=== PATIENT | male | born 1955 | race Two or more races ===

== ENCOUNTER 2016-08-16 20:16 | Emergency (ER) | payer MEDICAID ==
[~2016-08-16] VITALS: Ht 160 cm; Wt 54.0 kg
[~2016-08-16 20:16] MED LIST: IOHEXOL-300 100 ML BOTTLE ONE; SODIUM CHLORIDE 0.9% 10ML VIAL ONE
[2016-08-16] MEDS ORDERED: MORPHINE SULFATE 4 MG/ML CPJ (NOT FOR IM USE) IV ONE (20:45)
[2016-08-16 21:33] LABS: BASOPHILS % 0.8 % (0.0-2.0); EOSINOPHILS % 1.5 % (0.0-5.0); HEMOGLOBIN. 14.5 g/dL (14.0-18.0); LYMPHOCYTES % 10.3 % (20.0-50.0); MEAN CORPUSCULAR HGB CONC 33.6 g/dL (31.0-37.0); MEAN PLATELET VOLUME 7.7 fl (7.4-10.4); MONOCYTES % 6.9 % (2.0-8.0); NEUTROPHILS % 80.5 % (40.0-76.0); PLATELET 281 x1000/uL (130-400); RED BLOOD CELL COUNT 4.67 mill/uL (4.7-6.1); RED CELL DISTRIBUTION WIDTH 14.3 % (11.6-14.6); WHITE BLOOD COUNT 17.4 x1000/uL (4.5-11.0)
[2016-08-16 21:34] LABS: CHLORIDE 109 mEq/L (98-107); INDEX HEMOLYSI 1 (1-3); INDEX ICTERIC 1 (1-4); INDEX LIPEMIC 1 (1-3)
[2016-08-16 21:37] LABS: PARTIAL THROMBOPLASTIN TIME 27.8 sec (24.0-34.0); PROTHROMBIN TIME 10.3 sec
[2016-08-16 21:42] LABS: ALANINE AMINOTRANSFERASE 28 IU/L (13-61); ALBUMIN 3.2 g/dL (3.4-5.0); ANION GAP 13; CALCIUM 8.8 mg/dL (8.5-10.1); CARBON DIOXIDE 24 mEq/L (21-32); LIPASE 216 IU/L (73-393); UREA NITROGEN BLOOD 18 mg/dL (7-21); eGFR 56 mL/min (>60)
[2016-08-16 21:50] LABS: CLARITY URINE CLEAR (CLEAR); COLOR URINE YELLOW (YELLOW); GLUCOSE URINE NEGATIVE (NEGATIVE); KETONES URINE NEGATIVE (NEGATIVE); LEUKOCYTE ESTERASE URINE NEGATIVE (NEGATIVE); NITRITE URINE NEGATIVE (NEGATIVE); OCCULT BLOOD URINE 1+ (NEGATIVE); PH URINE 5.5 (4.5-8.0); PROTEIN URINE NEGATIVE (NEGATIVE); UROBILINOGEN URINE 0.2 E.U./dL (0.2-1.0)
[2016-08-16 22:10] LABS: BACTERIA URINE TRACE; SQUAMOUS EPITHELIAL CELL URINE RARE /lpf (RARE/1+); WBC URINE 0-2 /hpf (0-2)
[2016-08-17] MEDS ORDERED: MORPHINE SULFATE 4 MG/ML CPJ (NOT FOR IM USE) IV ONE (00:45)
[2016-08-17 03:00] VITALS: BP 132/72
== END 2016-08-17 04:15 | disposition home or self-care (01) ==
LOC: ER 20:17
DX: N20.0 Calculus of kidney (principal); E78.00 Pure hypercholesterolemia, unspecified; I10 Essential (primary) hypertension; F17.210 Nicotine dependence, cigarettes, uncomplicated
CPT/HCPCS: 36415; 74177; 80053; 81001; 83605; 83690; 85025; 85610; 85730; 96374; 96376; 99285; A4216; J2270; Q9967; Z7610

== ENCOUNTER 2020-12-29 16:51 | Emergency (ER) | payer MEDICAID ==
[~2020-12-29] VITALS: Ht 170.2 cm; Wt 79.0 kg
[2020-12-29] MEDS ORDERED: IBUPROFEN 400MG TABLET PO ONE (19:00)
[2020-12-29 19:12] VITALS: BP 122/70
[2020-12-29] MEDS ORDERED: IBUP-2028 MT (20:26)
== END 2020-12-29 21:34 | disposition home or self-care (01) ==
LOC: ER 16:51
DX: M17.0 Bilateral primary osteoarthritis of knee (principal); E78.00 Pure hypercholesterolemia, unspecified; I10 Essential (primary) hypertension
CPT/HCPCS: 93970; 99284

== ENCOUNTER 2022-01-01 10:41 | Emergency (ER) | payer MEDICAID, OTHER ==
[~2022-01-01] VITALS: Ht 160 cm; Wt 66.0 kg
[~2022-01-01 10:41] MED LIST changes: +IBUP-2028 MT; -IOHEXOL-300 100 ML BOTTLE ONE; -SODIUM CHLORIDE 0.9% 10ML VIAL ONE
[2022-01-01 10:49] VITALS: BP 112/67
[2022-01-01] MEDS ORDERED: TRIA1TAB94 MT (14:19)
== END 2022-01-01 14:38 | disposition home or self-care (01) ==
LOC: ER 10:41
DX: R60.0 Localized edema (principal); M25.562 Pain in left knee; M25.561 Pain in right knee; I10 Essential (primary) hypertension; E11.9 Type 2 diabetes mellitus without complications
CPT/HCPCS: 99283

== ENCOUNTER 2023-08-04 09:42 | Emergency (ER) | payer OTHER ==
[~2023-08-04] VITALS: Ht 162.6 cm; Wt 74.0 kg
[~2023-08-04 09:42] MED LIST changes: +TRIA1TAB94 MT
[2023-08-04 09:49] VITALS: O2SAT 100
[2023-08-04 10:08] LABS: BASOPHILS % 0.9 % (0.0-2.0); EOSINOPHILS % 1.9 % (0.0-5.0); HEMATOCRIT. 29.1 % (42.0-52.0); HEMOGLOBIN. 9.2 g/dL (14.0-18.0); LYMPHOCYTES % 21.2 % (20.0-50.0); MEAN CORPUSCULAR HEMOGLOBIN 24.9 pg (28.0-32.0); MEAN CORPUSCULAR HGB CONC 31.6 g/dL (31.0-37.0); MEAN CORPUSCULAR VOLUME 78.8 fL (80.0-94.0); MEAN PLATELET VOLUME 7.1 fl (7.4-10.4); MONOCYTES % 9.1 % (2.0-8.0); NEUTROPHILS % 66.9 % (40.0-76.0); PLATELET 673 x1000/uL (130-400); RED BLOOD CELL COUNT 3.69 mill/uL (4.7-6.1); RED CELL DISTRIBUTION WIDTH 22.6 % (11.6-14.6); WHITE BLOOD COUNT 12.9 x1000/uL (4.5-11.0)
[2023-08-04 10:18] LABS: PROTHROMBIN TIME 10.9 sec (9.6-11.0)
[2023-08-04 10:58] LABS: ADD RBC MORPHOLOGY YES; DIFFERENTIAL COMMENT 1
[2023-08-04 11:23] LABS: ALANINE AMINOTRANSFERASE 8 IU/L (10-49); ALBUMIN 4.2 g/dL (3.2-4.8); ASPARTATE AMINOTRANSFERASE 19 IU/L (<34); BILIRUBIN TOTAL 0.3 mg/dL (0.1-1.0); CALCIUM 9.2 mg/dL (8.7-10.4); CARBON DIOXIDE 18 mEq/L (21-32); CHLORIDE 105 mEq/L (98-107); CREATININE 1.4 mg/dL (0.6-1.3); GLUCOSE 189 mg/dL (70-105); POTASSIUM 4.4 mEq/L (3.5-5.1); PROTEIN TOTAL 6.8 g/dL (6.0-8.3); SODIUM 134 mEq/L (136-145); UREA NITROGEN BLOOD 17 mg/dL (9-23)
[2023-08-04 11:51] LABS: ANISOCYTOSIS 2+; MICROCYTOSIS 1+; PLATELET ESTIMATE MARKEDLY INCREASED
[2023-08-04 13:25] LABS: TROPONIN I HIGH SENSITIVITY < 4 ng/L (3.0-53)
[2023-08-04 13:46] VITALS: BP 121/71; PULSE 67; RESP 19; TEMP 98.3
[2023-08-04] MEDS: SODIUM CHLORIDE 0.9% 1,000 ML IV ONE (13:56)
[2023-08-04] MEDS: ASPIRIN 325MG EC TABLET PO ONE (14:18)
== END 2023-08-04 14:50 | disposition short-term general hospital (02) ==
LOC: ER 09:42
DX: R27.0 Ataxia, unspecified (principal); I10 Essential (primary) hypertension; E78.00 Pure hypercholesterolemia, unspecified; E11.9 Type 2 diabetes mellitus without complications
CPT/HCPCS: 99285; 96360; 70450; 71045; 80053; 85025; 85610; 84484; 36415; 93005; J7030

== ENCOUNTER 2024-04-07 19:47 | Inpatient (IN) | payer BC, OTHER ==
[~2024-04-07] VITALS: Ht 167.6 cm; Wt 67.7 kg
[2024-04-07] MEDS: SODIUM CHLORIDE 0.9% 1,000 ML IV ONE (22:13)
[2024-04-07 23:08] LABS: CHLORIDE 110 mEq/L (98-107); POTASSIUM 4.5 mEq/L (3.5-5.1); SODIUM 147 mEq/L (136-145)
[2024-04-07 23:09] LABS: CALCIUM 10.3 mg/dL (8.7-10.4); CARBON DIOXIDE 22 mEq/L (21-32)
[2024-04-07 23:12] LABS: PROTHROMBIN TIME 11.5 sec (9.6-11.0)
[2024-04-07 23:19] LABS: ALANINE AMINOTRANSFERASE 20 IU/L (10-49); ALBUMIN 3.3 g/dL (3.2-4.8); ASPARTATE AMINOTRANSFERASE 10 IU/L (<34); BILIRUBIN TOTAL 0.3 mg/dL (0.1-1.0); CREATININE 2.1 mg/dL (0.6-1.3); GLUCOSE 168 mg/dL (70-105); PROTEIN TOTAL 5.2 g/dL (6.0-8.3); UREA NITROGEN BLOOD 44 mg/dL (9-23)
[2024-04-07 23:20] LABS: BILIRUBIN DIRECT < 0.1 mg/dL (<=3.0)
[2024-04-08] VITALS (65 sets, daily range): BP systolic 105–155; BP diastolic 54–86; PULSE 52–90; RESP 7–23; TEMP 36.6696–37.28076; O2SAT 94–100
[2024-04-08] MEDS: MORPHINE SULFATE 4 MG/ML INJ (FOR IV/IM USE) IV ONE (00:02)
[2024-04-08] MEDS: PANTOPRAZOLE SODIUM 40 MG/VIAL IV ONE (00:03)
[2024-04-08] MEDS: ONDANSETRON HCL 4MG/2ML INJ IV ONE (00:03)
[2024-04-08 00:06] LABS: BASOPHILS % 0.1 % (0.0-2.0); EOSINOPHILS % 0.4 % (0.0-5.0); LYMPHOCYTES % 12.7 % (20.0-50.0); MEAN CORPUSCULAR HEMOGLOBIN 23.6 pg (28.0-32.0); MEAN CORPUSCULAR HGB CONC 29.4 g/dL (31.0-37.0); MEAN CORPUSCULAR VOLUME 80.2 fL (80.0-94.0); MEAN PLATELET VOLUME 7.4 fl (7.4-10.4); MONOCYTES % 9.5 % (2.0-8.0); NEUTROPHILS % 77.3 % (40.0-76.0); PLATELET 315 x1000/uL (130-400); RED BLOOD CELL COUNT 1.29 mill/uL (4.7-6.1); RED CELL DISTRIBUTION WIDTH 19.9 % (11.6-14.6)
[2024-04-08 00:25] LABS: DIFFERENTIAL COMMENT 1; HEMATOCRIT. 10.3 % (42.0-52.0)
[2024-04-08] MEDS: MORPHINE SULFATE 2 MG/ML INJ (NOT FOR IM USE) IV ONE (02:19)
[2024-04-08 02:26] LABS: BASOPHILS % 0.4 % (0.0-2.0); EOSINOPHILS % 0.7 % (0.0-5.0); LYMPHOCYTES % 12.5 % (20.0-50.0); MEAN CORPUSCULAR HEMOGLOBIN 27.3 pg (28.0-32.0); MEAN CORPUSCULAR HGB CONC 32.8 g/dL (31.0-37.0); MEAN CORPUSCULAR VOLUME 83.4 fL (80.0-94.0); MEAN PLATELET VOLUME 7.6 fl (7.4-10.4); MONOCYTES % 9.7 % (2.0-8.0); NEUTROPHILS % 76.7 % (40.0-76.0); PLATELET 222 x1000/uL (130-400); RED BLOOD CELL COUNT 1.89 mill/uL (4.7-6.1); RED CELL DISTRIBUTION WIDTH 17.3 % (11.6-14.6)
[2024-04-08 02:32] LABS: HEMOGLOBIN. 5.2 g/dL (14.0-18.0)
[2024-04-08 02:33] LABS: DIFFERENTIAL COMMENT 1; HEMATOCRIT. 15.8 % (42.0-52.0)
[2024-04-08] MEDS ORDERED: ACETAMINOPHEN 325MG TABLET PO PRN (09:15)
[2024-04-08] MEDS ORDERED: CLONIDINE 0.1MG TABLET PO PRN (09:15)
[2024-04-08] MEDS ORDERED: IPRATROPIUM/ALBUTEROL 0.5-3(2.5)MG/3ML NEB HHN PRN (09:15)
[2024-04-08] MEDS ORDERED: ONDANSETRON HCL 4MG/2ML INJ IV PRN (09:15)
[2024-04-08] MEDS ORDERED: DEXTROSE 50% WATER 50ML SYRINGE IV PRN (09:15)
[2024-04-08] MEDS: DEXTROSE 5% WATER 1,000 ML IV SCH (09:55)
[2024-04-08] MEDS: PANTOPRAZOLE 80 MG in SODIUM CHLORIDE 0.9% 100 ML IV SCH (11:19)
[2024-04-08] MEDS: INSULIN LISPRO 100 UNITS/ML SUBCUT SCH (11:34)
[2024-04-08] MEDS: BLOOD SUGAR DIAGNOSTIC STRIP TEST SCH (11:34)
[2024-04-08 12:37] LABS: BASOPHILS % 0.4 % (0.0-2.0); EOSINOPHILS % 1.6 % (0.0-5.0); HEMATOCRIT. 22.4 % (42.0-52.0); HEMOGLOBIN. 7.3 g/dL (14.0-18.0); LYMPHOCYTES % 15.2 % (20.0-50.0); MEAN CORPUSCULAR HEMOGLOBIN 27.2 pg (28.0-32.0); MEAN CORPUSCULAR HGB CONC 32.4 g/dL (31.0-37.0); MEAN PLATELET VOLUME 7.5 fl (7.4-10.4); MONOCYTES % 8.3 % (2.0-8.0); NEUTROPHILS % 74.5 % (40.0-76.0); PLATELET 206 x1000/uL (130-400); RED BLOOD CELL COUNT 2.67 mill/uL (4.7-6.1); RED CELL DISTRIBUTION WIDTH 16.5 % (11.6-14.6); WHITE BLOOD COUNT 11.5 x1000/uL (4.5-11.0)
[2024-04-08 12:41] LABS: DIFFERENTIAL COMMENT 1
[2024-04-08 12:43] LABS: ADD RBC MORPHOLOGY YES; PROTHROMBIN TIME 10.9 sec (9.6-11.0)
[2024-04-08 12:47] LABS: CHLORIDE 115 mEq/L (98-107); POTASSIUM 4.2 mEq/L (3.5-5.1); SODIUM 145 mEq/L (136-145)
[2024-04-08 12:48] LABS: CALCIUM 9.4 mg/dL (8.7-10.4); CARBON DIOXIDE 22 mEq/L (21-32)
[2024-04-08 12:53] LABS: CREATININE 1.7 mg/dL (0.6-1.3); GLUCOSE 111 mg/dL (70-105); UREA NITROGEN BLOOD 36 mg/dL (9-23)
[2024-04-08 12:55] LABS: CREATINE KINASE 35 IU/L (46-171)
[2024-04-08 12:57] LABS: T4 FREE 1.34 ng/dL (0.89-1.76); THYROID STIMULATING HORMONE 3.72 uIU/mL (0.55-4.78)
[2024-04-08 13:05] LABS: ETHANOL BLOOD < 10 mg/dL (<10)
[2024-04-08 14:32] LABS: CLARITY URINE CLEAR (CLEAR); COLOR URINE YELLOW (YELLOW); GLUCOSE URINE NEGATIVE (NEGATIVE); KETONES URINE NEGATIVE (NEGATIVE); LEUKOCYTE ESTERASE URINE NEGATIVE (NEGATIVE); NITRITE URINE NEGATIVE (NEGATIVE); OCCULT BLOOD URINE NEGATIVE (NEGATIVE); PROTEIN URINE NEGATIVE (NEGATIVE); SPECIFIC GRAVITY URINE 1.012 (1.005-1.030); UROBILINOGEN URINE 0.2 E.U./dL (0.2-1.0)
[2024-04-08 14:58] LABS: *AMPHETAMINES SCREEN URINE NEGATIVE (NEGATIVE)
[2024-04-08 14:59] LABS: *BARBITURATES SCREEN URINE NEGATIVE (NEGATIVE); *BENZODIAZEPINES SCREEN URINE NEGATIVE (NEGATIVE); *COCAINE SCREEN URINE NEGATIVE (NEGATIVE); CANNABINOID URINE SCREEN NEGATIVE (NEGATIVE); ECSTASY MDMA SCREEN URINE NEGATIVE (NEGATIVE); METHADONE URINE SCREEN NEGATIVE (NEGATIVE); OPIATES URINE SCREEN PRESUMPTIVE POSITIVE (NEGATIVE); PHENCYCLIDINE URINE SCREEN NEGATIVE (NEGATIVE)
[2024-04-08 15:04] LABS: MICROCYTOSIS 2+; PLATELET ESTIMATE NORMAL
[2024-04-08] MEDS ORDERED: IOHEXOL-350 100 ML BOTTLE ONE (15:13)
[2024-04-08] MEDS: SUCRALFATE 1G TABLET PO SCH (16:39)
[2024-04-08] MEDS: ACETAMINOPHEN 325MG TABLET PO PRN (18:36)
[2024-04-08 18:45] LABS: CREATINE KINASE MB FRACTION 2.2 ng/mL (0.5-3.6); TROPONIN I HIGH SENSITIVITY 5 ng/L (3.0-53)
[2024-04-08 18:46] LABS: CREATINE KINASE 36 IU/L (46-171)
[2024-04-08 22:56] LABS: HEMATOCRIT 22.5 % (42.0-52.0); HEMOGLOBIN 7.5 g/dL (14.0-18.0); MEAN CORPUSCULAR HEMOGLOBIN 27.6 pg (28.0-32.0); MEAN CORPUSCULAR HGB CONC 33.3 g/dL (31.0-37.0); PLATELET 212 x1000/uL (130-400); RED BLOOD CELL COUNT 2.72 mill/uL (4.7-6.1); RED CELL DISTRIBUTION WIDTH 17.5 % (11.6-14.6); WHITE BLOOD COUNT 11.3 x1000/uL (4.5-11.0)
[2024-04-08 23:11] LABS: CREATINE KINASE MB FRACTION 1.9 ng/mL (0.5-3.6)
[2024-04-09] VITALS (14 sets, daily range): BP systolic 105–147; BP diastolic 63–85; PULSE 59–85; RESP 11–17; TEMP 36.72516–37.2252; O2SAT 92–100
[2024-04-09 06:40] LABS: BASOPHILS % 0.7 % (0.0-2.0); EOSINOPHILS % 3.2 % (0.0-5.0); HEMATOCRIT. 23.7 % (42.0-52.0); HEMOGLOBIN. 7.9 g/dL (14.0-18.0); MEAN CORPUSCULAR HEMOGLOBIN 27.7 pg (28.0-32.0); MEAN CORPUSCULAR HGB CONC 33.3 g/dL (31.0-37.0); MEAN CORPUSCULAR VOLUME 83.3 fL (80.0-94.0); MEAN PLATELET VOLUME 7.6 fl (7.4-10.4); MONOCYTES % 6.9 % (2.0-8.0); NEUTROPHILS % 79.2 % (40.0-76.0); PLATELET 221 x1000/uL (130-400); RED BLOOD CELL COUNT 2.84 mill/uL (4.7-6.1); RED CELL DISTRIBUTION WIDTH 17.5 % (11.6-14.6); WHITE BLOOD COUNT 12.1 x1000/uL (4.5-11.0)
[2024-04-09 06:44] LABS: PROTHROMBIN TIME 10.8 sec (9.6-11.0)
[2024-04-09 07:12] LABS: CARBON DIOXIDE 21 mEq/L (21-32); CHLORIDE 110 mEq/L (98-107); POTASSIUM 3.7 mEq/L (3.5-5.1); SODIUM 142 mEq/L (136-145)
[2024-04-09 07:13] LABS: CALCIUM 9.3 mg/dL (8.7-10.4)
[2024-04-09 07:18] LABS: CREATININE 1.6 mg/dL (0.6-1.3); GLUCOSE 95 mg/dL (70-105); IRON 18 ug/dL (65-175); TOTAL IRON BINDING CAPACITY 335 ug/dl (250-425); UREA NITROGEN BLOOD 25 mg/dL (9-23)
[2024-04-09 07:19] LABS: ALBUMIN 3.3 g/dL (3.2-4.8)
[2024-04-09 07:20] LABS: ALANINE AMINOTRANSFERASE 15 IU/L (10-49); ASPARTATE AMINOTRANSFERASE 11 IU/L (<34); BILIRUBIN DIRECT 0.2 mg/dL (<=3.0); BILIRUBIN TOTAL 0.6 mg/dL (0.1-1.0); PHOSPHORUS 2.8 mg/dL (2.5-4.9)
[2024-04-09 07:21] LABS: VITAMIN B12 SERUM 1171 pg/mL (211-911)
[2024-04-09 07:22] LABS: DIFFERENTIAL COMMENT 1; FERRITIN 30 ng/mL (22-322)
[2024-04-09 07:24] LABS: FOLIC ACID (FOLATE) SERUM 10.77 ng/mL (>5.38)
[2024-04-09] MEDS: POTASSIUM CHLORIDE 20MEQ TABLET SR PO NR (09:20)
[2024-04-09] MEDS: MAGNESIUM 4 G PREMIX 100 ML IV NR (12:32)
[2024-04-09] MEDS: FERROUS SULFATE 325MG TABLET PO SCH (18:34)
[2024-04-09] MEDS: ASCORBIC ACID 500 MG TABLET PO SCH (20:30)
[2024-04-10] VITALS (12 sets, daily range): BP systolic 85–132; BP diastolic 50–107; PULSE 68–92; RESP 13–28; TEMP 36.50292–37.44744; O2SAT 94–99
[2024-04-10 08:36] LABS: INR 0.9; PROTHROMBIN TIME 10.6 sec (9.6-11.0)
[2024-04-10 08:42] LABS: CHLORIDE 108 mEq/L (98-107); POTASSIUM 3.3 mEq/L (3.5-5.1); SODIUM 140 mEq/L (136-145)
[2024-04-10 08:44] LABS: CARBON DIOXIDE 20 mEq/L (21-32)
[2024-04-10 08:45] LABS: CALCIUM 9.2 mg/dL (8.7-10.4)
[2024-04-10 08:49] LABS: CREATININE 1.6 mg/dL (0.6-1.3)
[2024-04-10 08:50] LABS: GLUCOSE 99 mg/dL (70-105); UREA NITROGEN BLOOD 15 mg/dL (9-23)
[2024-04-10 08:51] LABS: ALBUMIN 3.6 g/dL (3.2-4.8)
[2024-04-10 08:52] LABS: ALANINE AMINOTRANSFERASE 13 IU/L (10-49); ASPARTATE AMINOTRANSFERASE 13 IU/L (<34); BILIRUBIN TOTAL 0.5 mg/dL (0.1-1.0); PHOSPHORUS 3.1 mg/dL (2.5-4.9); PROTEIN TOTAL 5.5 g/dL (6.0-8.3)
[2024-04-10 09:04] LABS: BASOPHILS % 0.3 % (0.0-2.0); EOSINOPHILS % 5.4 % (0.0-5.0); HEMATOCRIT. 27.7 % (42.0-52.0); HEMOGLOBIN. 9.1 g/dL (14.0-18.0); LYMPHOCYTES % 9.6 % (20.0-50.0); MEAN CORPUSCULAR HEMOGLOBIN 27.5 pg (28.0-32.0); MEAN CORPUSCULAR HGB CONC 32.7 g/dL (31.0-37.0); MEAN CORPUSCULAR VOLUME 83.9 fL (80.0-94.0); MEAN PLATELET VOLUME 7.8 fl (7.4-10.4); MONOCYTES % 8.9 % (2.0-8.0); NEUTROPHILS % 75.8 % (40.0-76.0); PLATELET 269 x1000/uL (130-400); RED CELL DISTRIBUTION WIDTH 18.3 % (11.6-14.6); WHITE BLOOD COUNT 10.4 x1000/uL (4.5-11.0)
[2024-04-10] MEDS: POTASSIUM CHLORIDE 20MEQ TABLET SR PO NR (11:05)
[2024-04-10] MEDS ORDERED: SIMETHICONE 40 MG/0.6 ML 15ML ONE (14:07)
[2024-04-10] MEDS ORDERED: PROPOFOL 200MG/20ML VIAL IV ONE (14:49)
[2024-04-10] MEDS ORDERED: LABETALOL 5MG/ML 4ML INJ IV PRN (15:00)
[2024-04-10] MEDS ORDERED: HYDROMORPHONE HCL/PF 1MG/ML INJ IV PRN (15:00)
[2024-04-10] MEDS ORDERED: ONDANSETRON HCL 4MG/2ML INJ IV PRN (15:00)
[2024-04-10] MEDS ORDERED: MEPERIDINE HCL/PF 25MG/ML CPJ IV PRN (15:00)
[2024-04-10 16:15] LABS: POTASSIUM 3.5 mEq/L (3.5-5.1)
[2024-04-10 16:16] LABS: CALCIUM 9.1 mg/dL (8.7-10.4)
[2024-04-10 16:21] LABS: CREATININE 1.6 mg/dL (0.6-1.3)
[2024-04-10] MEDS: SUCRALFATE 1G TABLET PO SCH (17:52)
[2024-04-10] MEDS: METOCLOPRAMIDE HCL 10MG/2ML VIAL IV SCH (17:53)
[2024-04-10] MEDS: DOCUSATE SODIUM 100MG CAPSULE PO PRN (21:25)
[2024-04-10] MEDS ORDERED: PANTOPRAZOLE 80MG in SODIUM CHLORIDE 0.9% 100ML IV SCH (22:00)
[2024-04-11] VITALS (10 sets, daily range): BP systolic 93–129; BP diastolic 60–101; PULSE 77–98; RESP 15–23; TEMP 36.78072–37.33632; O2SAT 96–100
[2024-04-11 05:50] LABS: CHLORIDE 109 mEq/L (98-107); POTASSIUM 3.7 mEq/L (3.5-5.1); SODIUM 139 mEq/L (136-145)
[2024-04-11 05:51] LABS: CARBON DIOXIDE 17 mEq/L (21-32)
[2024-04-11 05:56] LABS: CREATININE 1.5 mg/dL (0.6-1.3); GLUCOSE 92 mg/dL (70-105); UREA NITROGEN BLOOD 14 mg/dL (9-23)
[2024-04-11 05:58] LABS: PHOSPHORUS 2.8 mg/dL (2.5-4.9)
[2024-04-11 06:19] LABS: BASOPHILS % 0.7 % (0.0-2.0); EOSINOPHILS % 6.2 % (0.0-5.0); HEMATOCRIT. 31.6 % (42.0-52.0); LYMPHOCYTES % 13.7 % (20.0-50.0); MEAN CORPUSCULAR HEMOGLOBIN 27.4 pg (28.0-32.0); MEAN CORPUSCULAR HGB CONC 31.8 g/dL (31.0-37.0); MEAN CORPUSCULAR VOLUME 86.4 fL (80.0-94.0); MEAN PLATELET VOLUME 7.8 fl (7.4-10.4); MONOCYTES % 8.9 % (2.0-8.0); NEUTROPHILS % 70.5 % (40.0-76.0); PLATELET 296 x1000/uL (130-400); RED BLOOD CELL COUNT 3.65 mill/uL (4.7-6.1); RED CELL DISTRIBUTION WIDTH 18.9 % (11.6-14.6); WHITE BLOOD COUNT 9.6 x1000/uL (4.5-11.0)
[2024-04-11 06:32] LABS: DIFFERENTIAL COMMENT 1
[2024-04-11] MEDS: PANTOPRAZOLE 40MG DR TABLET PO SCH (08:06)
[2024-04-11] MEDS ORDERED: SUCR1TAB MT (09:51)
[2024-04-11] MEDS ORDERED: PROT40 MT (09:51)
[2024-04-11] MEDS: SODIUM BICARBONATE 650MG TABLET PO SCH (14:59)
== END 2024-04-11 16:00 | disposition home or self-care (01) | DRG 241 ==
LOC: ER 19:47 → MICUSO 04-08 01:04 → EDBEDREQ 04-08 01:06 → EDBEDREQSVC 04-08 01:06 → EDBEDREQTM 04-08 01:06 → 5EST 04-09 01:10
PROVIDERS: ADMIT Internal Medicine; ATTEND Internal Medicine
PROC: 30233L1 Transfusion of Nonautologous Fresh Plasma into Peripheral Vein, Percutaneous Approach (ICD-10-PCS; principal; 2024-04-08)
PROC: 30233N1 Transfusion of Nonautologous Red Blood Cells into Peripheral Vein, Percutaneous Approach (ICD-10-PCS; 2024-04-08)
PROC: 0DB78ZX Excision of Stomach, Pylorus, Via Natural or Artificial Opening Endoscopic, Diagnostic (ICD-10-PCS; 2024-04-10)
DX: K29.81 Duodenitis with bleeding (principal); N17.0 Acute kidney failure with tubular necrosis; R65.10 Systemic inflammatory response syndrome (SIRS) of non-infectious origin without acute organ dysfunction; E11.22 Type 2 diabetes mellitus with diabetic chronic kidney disease; D50.9 Iron deficiency anemia, unspecified; D72.829 Elevated white blood cell count, unspecified; E78.00 Pure hypercholesterolemia, unspecified; K25.4 Chronic or unspecified gastric ulcer with hemorrhage; E87.8 Other disorders of electrolyte and fluid balance, not elsewhere classified; K29.71 Gastritis, unspecified, with bleeding; K26.4 Chronic or unspecified duodenal ulcer with hemorrhage; I12.9 Hypertensive chronic kidney disease with stage 1 through stage 4 chronic kidney disease, or unspecified chronic kidney disease; K42.9 Umbilical hernia without obstruction or gangrene; N20.2 Calculus of kidney with calculus of ureter; N18.9 Chronic kidney disease, unspecified; Z79.899 Other long term (current) drug therapy
CPT/HCPCS: 36415; 74174; 74176; 76770; 80048; 80053; 80076; 80305; 80320; 81003; 82550; 82553; 82607; 82728; 82746; 82962; 83036; 83540; 83550; 83605; 83735; 83880; 84100; 84145; 84439; 84443; 84480; 84484; 85025; 85027; 85044; 86850; 86900; 86920; 86927; 88305; 88312; 88313; 93005; 99291; A4606; J1815; J2270; J2405; J2470; J2704; J2765; J3475; J7030; J7050; J7070; P9016; P9017; Q9967; G0480

== ENCOUNTER 2024-06-16 13:12 | Emergency (ER) | payer BC, MEDICAID ==
[~2024-06-16] VITALS: Ht 157.5 cm; Wt 70.0 kg
[~2024-06-16 13:12] MED LIST changes: -IBUP-2028 MT; +PROT40 MT; +SUCR1TAB MT; -TRIA1TAB94 MT
[2024-06-16 13:18] VITALS: O2SAT 98
[2024-06-16 13:20] VITALS: TEMP 36.9; O2SAT 98
[2024-06-16 15:27] VITALS: BP 143/93; PULSE 82; RESP 16; TEMP 98.7
[2024-06-16] MEDS: ACETAMINOPHEN 500MG TABLET PO ONE (15:27)
[2024-06-16] MEDS: KETOROLAC 30MG/ML VIAL IM ONE (15:27)
[2024-06-16] MEDS ORDERED: IBUP-2029 MT (16:57)
== END 2024-06-16 17:18 | disposition home or self-care (01) ==
LOC: ER 13:12
DX: M79.604 Pain in right leg (principal); M54.50 Low back pain, unspecified; E11.9 Type 2 diabetes mellitus without complications; E78.00 Pure hypercholesterolemia, unspecified; I10 Essential (primary) hypertension; Z79.899 Other long term (current) drug therapy; Z98.890 Other specified postprocedural states
CPT/HCPCS: 99283; 96372; J1885

== ENCOUNTER 2024-08-19 17:18 | Inpatient (IN) | payer BC ==
[~2024-08-19] VITALS: Ht 160 cm; Wt 68.0 kg
[~2024-08-19 17:18] MED LIST changes: +IBUP-2029 MT
[2024-08-19 17:57] LABS: HEMATOCRIT. 36.2 % (42.0-52.0); HEMOGLOBIN. 12.1 g/dL (14.0-18.0); MEAN CORPUSCULAR HEMOGLOBIN 27.6 pg (28.0-32.0); MEAN CORPUSCULAR HGB CONC 33.4 g/dL (31.0-37.0); MEAN CORPUSCULAR VOLUME 82.9 fL (80.0-94.0); PLATELET 181 x1000/uL (130-400); RED BLOOD CELL COUNT 4.37 mill/uL (4.7-6.1); RED CELL DISTRIBUTION WIDTH 19.2 % (11.6-14.6)
[2024-08-19 18:02] LABS: DIFFERENTIAL COMMENT 1
[2024-08-19 18:03] LABS: CHLORIDE 95 mEq/L (98-107); POTASSIUM 3.4 mEq/L (3.5-5.1); SODIUM 126 mEq/L (136-145)
[2024-08-19 18:04] LABS: CALCIUM 8.8 mg/dL (8.7-10.4); CARBON DIOXIDE 19 mEq/L (21-32)
[2024-08-19 18:09] LABS: CREATININE 1.7 mg/dL (0.6-1.3); GLUCOSE 118 mg/dL (70-105); UREA NITROGEN BLOOD 43 mg/dL (9-23)
[2024-08-19 18:10] LABS: TROPONIN I HIGH SENSITIVITY 12 ng/L (3.0-53)
[2024-08-19] MEDS: SODIUM CHLORIDE 0.9% (SEPSIS BOLUS) IV ONE (18:26)
[2024-08-19] MEDS: CEFTRIAXONE 1GM/50ML 50 ML IV ONE (18:26)
[2024-08-19] MEDS: ACETAMINOPHEN 500MG TABLET PO NR (18:36)
[2024-08-19 18:47] LABS: ANISOCYTOSIS 2+; GIANT PLATELETS FEW; PLATELET ESTIMATE NORMAL
[2024-08-19] MEDS: AZITHROMYCIN 500MG/250ML 250 ML IV SCH (18:47)
[2024-08-19 20:24] LABS: CLARITY URINE CLEAR (CLEAR); COLOR URINE YELLOW (YELLOW); GLUCOSE URINE NEGATIVE (NEGATIVE); KETONES URINE TRACE (NEGATIVE); LEUKOCYTE ESTERASE URINE NEGATIVE (NEGATIVE); NITRITE URINE NEGATIVE (NEGATIVE); OCCULT BLOOD URINE NEGATIVE (NEGATIVE); PH URINE 5.5 (4.5-8.0); PROTEIN URINE TRACE (NEGATIVE); UROBILINOGEN URINE 0.2 E.U./dL (0.2-1.0)
[2024-08-19 20:42] LABS: BACTERIA URINE TRACE; RBC URINE 0-2 /hpf (0-2); SQUAMOUS EPITHELIAL CELL URINE NONE SEEN /lpf (RARE/1+); WBC URINE 0-2 /hpf (0-2)
[2024-08-19] MEDS: NOREPINEPHRINE 8MG/250ML PMX 250 ML IV PRN (22:25)
[2024-08-19 23:03] VITALS: BP 132/85; PULSE 60; RESP 15; TEMP 36.7; O2SAT 99
[2024-08-19 23:15] VITALS: BP 112/61; PULSE 62; RESP 15; O2SAT 99
[2024-08-19 23:30] VITALS: BP 115/66; PULSE 63; RESP 12; O2SAT 99
[2024-08-19] MEDS ORDERED: ACETAMINOPHEN 325MG TABLET PO PRN (23:30)
[2024-08-19] MEDS ORDERED: DEXTROSE 50% WATER 50ML SYRINGE IV PRN (23:30)
[2024-08-19] MEDS ORDERED: ONDANSETRON HCL 4MG/2ML INJ IV PRN (23:30)
[2024-08-19] MEDS ORDERED: IPRATROPIUM/ALBUTEROL 0.5-3(2.5)MG/3ML NEB HHN SCH (23:30)
[2024-08-19 23:45] VITALS: BP 92/80; PULSE 63; RESP 15; O2SAT 99
[2024-08-19 23:54] VITALS: BP 92/80; PULSE 64; RESP 16; TEMP 36.7
[2024-08-20] VITALS (80 sets, daily range): BP systolic 82–160; BP diastolic 39–101; PULSE 47–89; RESP 11–28; TEMP 36.7–37.1; O2SAT 97–100
[2024-08-20] MEDS: SODIUM CHL 0.9% + KCL 20MEQ/L 1,000 ML IV SCH (00:24)
[2024-08-20 05:36] LABS: HEMATOCRIT. 35.3 % (42.0-52.0); HEMOGLOBIN. 11.4 g/dL (14.0-18.0); MEAN CORPUSCULAR HEMOGLOBIN 27.7 pg (28.0-32.0); MEAN CORPUSCULAR HGB CONC 32.3 g/dL (31.0-37.0); MEAN CORPUSCULAR VOLUME 85.6 fL (80.0-94.0); MEAN PLATELET VOLUME 7.3 fl (7.4-10.4); PLATELET 170 x1000/uL (130-400); RED BLOOD CELL COUNT 4.12 mill/uL (4.7-6.1); RED CELL DISTRIBUTION WIDTH 19.3 % (11.6-14.6)
[2024-08-20 05:55] LABS: POTASSIUM 3.2 mEq/L (3.5-5.1)
[2024-08-20 05:57] LABS: CALCIUM 8.6 mg/dL (8.7-10.4)
[2024-08-20 06:01] LABS: CREATININE 1.4 mg/dL (0.6-1.3)
[2024-08-20 06:03] LABS: DIFFERENTIAL COMMENT 1
[2024-08-20] MEDS: BLOOD SUGAR DIAGNOSTIC STRIP TEST SCH ×2 (07:46→12:34)
[2024-08-20] MEDS: INSULIN LISPRO 100 UNITS/ML SUBCUT SCH ×2 (08:13→12:35)
[2024-08-20] MEDS: POTASSIUM CHLORIDE 20MEQ TABLET SR PO SCH (08:30)
[2024-08-20] MEDS: ENOXAPARIN 40MG/0.4ML SYR SUBCUT SCH (08:30)
[2024-08-20] MEDS ORDERED: ONDANSETRON HCL 4MG/2ML INJ IV PRN (09:30)
[2024-08-20] MEDS ORDERED: DEXTROSE 50% WATER 50ML SYRINGE IV PRN (09:30)
[2024-08-20] MEDS ORDERED: ACETAMINOPHEN 325MG TABLET PO PRN (09:30)
[2024-08-20 10:52] LABS: *AMPHETAMINES SCREEN URINE NEGATIVE (NEGATIVE); *BARBITURATES SCREEN URINE NEGATIVE (NEGATIVE); *BENZODIAZEPINES SCREEN URINE NEGATIVE (NEGATIVE); *COCAINE SCREEN URINE NEGATIVE (NEGATIVE)
[2024-08-20 10:53] LABS: CANNABINOID URINE SCREEN NEGATIVE (NEGATIVE); ECSTASY MDMA SCREEN URINE NEGATIVE (NEGATIVE); METHADONE URINE SCREEN NEGATIVE (NEGATIVE); OPIATES URINE SCREEN NEGATIVE (NEGATIVE); PHENCYCLIDINE URINE SCREEN NEGATIVE (NEGATIVE)
[2024-08-20 11:19] LABS: ANISOCYTOSIS 2+; PLATELET ESTIMATE NORMAL
[2024-08-20 11:21] LABS: TRIGLYCERIDE 172 mg/dL (0-150)
[2024-08-20 11:22] LABS: LDL CHOLESTEROL 57 mg/dL (5-100)
[2024-08-20 11:23] LABS: CHOLESTEROL 151 mg/dL (<200); CREATINE KINASE 26 IU/L (46-171); HDL CHOLESTEROL 59 mg/dL (>55); PHOSPHORUS 4.1 mg/dL (2.5-4.9)
[2024-08-20] MEDS: SUCRALFATE 1G TABLET PO SCH (12:54)
[2024-08-20] MEDS: CEFTRIAXONE 1GM/50ML 50 ML IV SCH (17:58)
[2024-08-20] MEDS: AZITHROMYCIN 500MG/250ML 250 ML IV SCH (17:58)
[2024-08-20] MEDS: POTASSIUM CHLORIDE IV SCH (21:11)
[2024-08-20] MEDS: SODIUM CHLORIDE 0.9% IV SCH (21:11)
[2024-08-21] VITALS (34 sets, daily range): BP systolic 91–140; BP diastolic 60–79; PULSE 61–88; RESP 14–25; TEMP 36.4–37; O2SAT 97–99
[2024-08-21 05:14] LABS: HEMATOCRIT. 31.2 % (42.0-52.0); HEMOGLOBIN. 10.3 g/dL (14.0-18.0); MEAN CORPUSCULAR HEMOGLOBIN 27.8 pg (28.0-32.0); MEAN CORPUSCULAR VOLUME 84.2 fL (80.0-94.0); MEAN PLATELET VOLUME 7.3 fl (7.4-10.4); PLATELET 151 x1000/uL (130-400); RED CELL DISTRIBUTION WIDTH 19.3 % (11.6-14.6); WHITE BLOOD COUNT 14.3 x1000/uL (4.5-11.0)
[2024-08-21 05:18] LABS: CALCIUM 8.6 mg/dL (8.7-10.4); CARBON DIOXIDE 18 mEq/L (21-32); CHLORIDE 108 mEq/L (98-107); POTASSIUM 4.1 mEq/L (3.5-5.1); SODIUM 134 mEq/L (136-145)
[2024-08-21 05:24] LABS: GLUCOSE 126 mg/dL (70-105); UREA NITROGEN BLOOD 22 mg/dL (9-23)
[2024-08-21 07:05] LABS: DIFFERENTIAL COMMENT 1
[2024-08-21] MEDS: PANTOPRAZOLE SODIUM 40 MG/VIAL IV SCH (10:01)
[2024-08-21] MEDS: ENOXAPARIN 40MG/0.4ML SYR SUBCUT SCH (10:02)
[2024-08-21 13:49] LABS: ANISOCYTOSIS 2+; PLATELET ESTIMATE NORMAL
[2024-08-22] VITALS: BP 119/70; PULSE 79; RESP 21; TEMP 36.3; O2SAT 96
[2024-08-22 02:03] LABS: INFLUENZA TYPE A Presumptive Negative (Pres. Neg.); INFLUENZA TYPE B Presumptive Negative (Pres. Neg.)
[2024-08-22 02:04] LABS: RESPIRATORY SYNCYTIAL VIRUS Not Detected (Not Detectd)
[2024-08-22 04:00] VITALS: BP 123/66; PULSE 74; RESP 21; TEMP 36.7; O2SAT 74
[2024-08-22 05:56] LABS: CARBON DIOXIDE 18 mEq/L (21-32); CHLORIDE 107 mEq/L (98-107); POTASSIUM 4.4 mEq/L (3.5-5.1); SODIUM 134 mEq/L (136-145)
[2024-08-22 05:57] LABS: CALCIUM 8.8 mg/dL (8.7-10.4)
[2024-08-22 06:02] LABS: GLUCOSE 107 mg/dL (70-105); UREA NITROGEN BLOOD 18 mg/dL (9-23)
[2024-08-22 06:29] LABS: BASOPHILS % 0.1 % (0.0-2.0); HEMATOCRIT. 32.6 % (42.0-52.0); HEMOGLOBIN. 10.9 g/dL (14.0-18.0); LYMPHOCYTES % 10.2 % (20.0-50.0); MEAN CORPUSCULAR HEMOGLOBIN 28.2 pg (28.0-32.0); MEAN CORPUSCULAR HGB CONC 33.5 g/dL (31.0-37.0); MEAN CORPUSCULAR VOLUME 84.1 fL (80.0-94.0); MEAN PLATELET VOLUME 7.9 fl (7.4-10.4); NEUTROPHILS % 80.7 % (40.0-76.0); PLATELET 169 x1000/uL (130-400); RED BLOOD CELL COUNT 3.88 mill/uL (4.7-6.1); RED CELL DISTRIBUTION WIDTH 19.1 % (11.6-14.6); WHITE BLOOD COUNT 9.5 x1000/uL (4.5-11.0)
[2024-08-22 08:00] VITALS: BP 115/71; PULSE 82; RESP 18; TEMP 36.9; O2SAT 96
[2024-08-22 12:00] VITALS: BP 111/69; PULSE 73; RESP 16; TEMP 37; O2SAT 98
[2024-08-22 16:00] VITALS: BP 132/82; PULSE 74; RESP 17; TEMP 36.8; O2SAT 97
[2024-08-22 20:00] VITALS: BP 119/72; PULSE 82; RESP 20; TEMP 36.7; O2SAT 97
[2024-08-23] VITALS: BP 123/78; PULSE 79; RESP 20; TEMP 36.7; O2SAT 97
[2024-08-23 04:00] VITALS: BP 122/65; PULSE 84; RESP 20; TEMP 36.3; O2SAT 96
[2024-08-23 08:00] VITALS: BP 126/76; PULSE 81; RESP 19; TEMP 37.2; O2SAT 96
[2024-08-23] MEDS ORDERED: AMOX1TAB16 MT (09:25)
[2024-08-23 11:47] VITALS: BP 125/80; PULSE 97; TEMP 98; O2SAT 96
[2024-08-23 12:00] VITALS: BP 126/81; PULSE 84; RESP 18; TEMP 36.7; O2SAT 96
[2024-08-23 16:00] VITALS: BP 126/77; PULSE 83; RESP 18; TEMP 36.7; O2SAT 96
== END 2024-08-23 18:20 | disposition home or self-care (01) | DRG 720 ==
LOC: ER 17:18 → CVICU 20:07 → EDBEDREQTM 20:11 → EDBEDREQ 20:11 → EDBEDREQSVC 22:26 → 6WST 08-21 10:50
PROVIDERS: ADMIT Internal Medicine; ATTEND Internal Medicine
DX: A41.9 Sepsis, unspecified organism (principal); J96.01 Acute respiratory failure with hypoxia; N17.0 Acute kidney failure with tubular necrosis; R65.21 Severe sepsis with septic shock; J18.9 Pneumonia, unspecified organism; E87.1 Hypo-osmolality and hyponatremia; E87.20 Acidosis, unspecified; E87.6 Hypokalemia; N18.30 Chronic kidney disease, stage 3 unspecified; I12.9 Hypertensive chronic kidney disease with stage 1 through stage 4 chronic kidney disease, or unspecified chronic kidney disease; D64.9 Anemia, unspecified; E78.00 Pure hypercholesterolemia, unspecified; E11.22 Type 2 diabetes mellitus with diabetic chronic kidney disease; R07.89 Other chest pain; Z20.822 Contact with and (suspected) exposure to COVID-19
CPT/HCPCS: 36415; 71045; 76770; 80048; 80061; 80305; 81003; 82533; 82550; 82962; 83036; 83605; 83735; 83930; 83935; 84100; 84145; 84443; 84484; 85025; 87420; 87426; 87804; 93005; 93306; 99291; J0456; J0696; J1650; J1815; J2470; J3480; J3490; J7030